=== PATIENT | male | born 1990 | race Two or more races ===

== ENCOUNTER 2024-12-22 12:14 | Emergency (ER) | payer OTHER ==
[~2024-12-22] VITALS: Ht 174 cm; Wt 106.6 kg
[2024-12-22] MEDS ORDERED: ALLERGY RELIE15.8 ML (12:53)
[2024-12-22] MEDS ORDERED: ACETAMINOPHEN500 M1 (12:54)
[2024-12-22] MEDS ORDERED: ORPHENADRINE CITRATE 30 MG/ML AMPUL IM STA (13:13)
[2024-12-22] MEDS ORDERED: TRAMADOL HCL 50 MG TABLET PO STA (13:15)
[2024-12-22] MEDS ORDERED: ORPHENADRINE CITRATE 30 MG/ML AMPUL ONE (14:10)
== END 2024-12-22 15:08 | disposition home or self-care (01) ==
LOC: ER 12:14
DX: M54.50 Low back pain, unspecified (principal); Z88.6 Allergy status to analgesic agent